=== PATIENT | female | born 1950 | race Caucasian/White ===

== ENCOUNTER 2020-11-10 10:50 | Outpatient (REF) | payer MEDICARE, SELFPAY | END 2020-11-10 10:51 | disposition home or self-care (01) | LOC: HO.LAB 10:50 | PROVIDERS: PCP Internal Medicine; Visit Provider Internal Medicine | DX: Z20.822 Contact with and (suspected) exposure to COVID-19 (principal) | CPT/HCPCS: C9803; U0003; U0005 ==